=== PATIENT | male | born 1940 | race Caucasian/White ===

== ENCOUNTER → 2017-02-16 | Outpatient (CLI) | payer MEDICARE ==
[2017-02-16 08:40] LABS: HEMATOCRIT 41.9 % (42.0-52.0); HEMOGLOBIN 13.5 g/dl (14.0-18.0); MEAN CELL VOLUME 83.8 fl (80.0-94.0); MEAN CORPUSCULAR HGB CONC 32.2 g/dl (33.0-37.0); MEAN PLATELET VOLUME 10.5 fl (9.6-12.3); PLATELET COUNT AUTOMATED 173 10*3/uL (130-400); RED CELL DISTRI WIDTH 13.4 % (0-14.5); WHITE BLOOD COUNT 8.2 10*3/uL (4.8-10.8)
[2017-02-16 09:19] LABS: BASOPHIL # 0.1 10*3/uL (0-0.1); BASOPHILS 1 % (0-1); EOSINOPHIL # 0.4 10*3/uL (0-0.4); EOSINOPHILS 5 % (1-4); MONOCYTE # 0.5 10*3/uL (0.1-1.0); NEUTROPHIL # 6.2 10*3/uL (2.3-7.9); NEUTROPHILS 76 % (47-73); TOTAL CELLS COUNTED 100 #CELLS
[2017-02-16 09:20] LABS: PLATELET SUFFICIENCY NORMAL (NORMAL)
[2017-02-16 09:47] LABS: FREE T4 1.27 ng/dl (0.76-1.46)
[2017-02-17 08:15] LABS: FREE T3 010389 3.1 pg/mL (2.0-4.4)
[2017-02-17 15:09] LABS: THYROTROPIN RECEPTOR AB 6.95 IU/L (0.00-1.75)
== END | disposition home or self-care (01) ==
LOC: LAB 08:12
PROVIDERS: Family Medicine
DX: E05.90 Thyrotoxicosis, unspecified without thyrotoxic crisis or storm (principal); D64.9 Anemia, unspecified; Z86.2 Personal history of diseases of the blood and blood-forming organs and certain disorders involving the immune mechanism

== ENCOUNTER → 2017-03-06 | Outpatient (CLI) | payer MEDICARE | END | disposition home or self-care (01) | LOC: US 13:10 | DX: E05.90 Thyrotoxicosis, unspecified without thyrotoxic crisis or storm (principal) ==

== ENCOUNTER → 2017-07-07 | Outpatient (CLI) | payer MEDICARE ==
[2017-07-07 09:20] LABS: FREE T4 0.87 ng/dl (0.76-1.46)
[2017-07-07 09:25] LABS: THYROID STIM HORMONE (HS) 3.47 uIU/ml (0.358-4.75)
[2017-07-09 14:07] LABS: THYROTROPIN RECEPTOR AB 1.74 IU/L (0.00-1.75)
[2017-07-09 17:12] LABS: THYROGLOBULIN ANTIBODY <1.0 IU/mL (0.0-0.9); THYROGLOBULINN AB IMA 8.7 ng/mL (1.4-29.2)
== END | disposition home or self-care (01) ==
LOC: LAB 08:10
PROVIDERS: Internal Medicine
DX: E03.9 Hypothyroidism, unspecified (principal)

== ENCOUNTER 2017-10-11 09:10 | Emergency (ER) | payer MEDICARE ==
[~2017-10-11] VITALS: Ht 190.5 cm; Wt 98.9 kg
[2017-10-11 10:02] LABS: BILIRUBIN NEGATIVE (NEGATIVE); BLOOD NEGATIVE (NEGATIVE); CLARITY CLEAR (CLEAR); COLOR YELLOW (YELLOW); GLUCOSE NEGATIVE (NEGATIVE); KETONE TRACE (NEGATIVE); LEUKO ESTERASE NEGATIVE (NEGATIVE); NITRITE NEGATIVE (NEGATIVE); SPECIFIC GRAVITY >= 1.030 (1.005-1.030); UROBILINOGEN 0.2 E.U./dl (0.2-1.0)
[2017-10-11 10:14] LABS: BACTERIA TRACE; CALCIUM OXALATE CRYSTALS TRACE; RBC 0-2 rbc/hpf (0-2); WBC 0-2 wbc/hpf (0-5)
== END 2017-10-11 12:30 | disposition home or self-care (01) ==
LOC: ED 09:10
PROVIDERS: Nurse Practitioner Family
DX: N50.812 Left testicular pain (principal); N50.811 Right testicular pain; R03.0 Elevated blood-pressure reading, without diagnosis of hypertension

== ENCOUNTER 2018-12-28 09:34 | Emergency (ER) | payer MEDICARE ==
[~2018-12-28] VITALS: Ht 190.5 cm; Wt 99.8 kg
[2018-12-28 10:00] LABS: BILIRUBIN NEGATIVE (NEGATIVE); BLOOD NEGATIVE (NEGATIVE); CLARITY CLEAR (CLEAR); COLOR YELLOW (YELLOW); GLUCOSE 2+ (NEGATIVE); KETONE NEGATIVE (NEGATIVE); LEUKO ESTERASE NEGATIVE (NEGATIVE); NITRITE NEGATIVE (NEGATIVE); PH 5.5 (5.0-9.0); SPECIFIC GRAVITY 1.025 (1.005-1.030); UROBILINOGEN 0.2 E.U./dl (0.2-1.0)
[2018-12-28] MEDS ORDERED: ALA-CORT28.4 GM T (10:14)
== END 2018-12-28 10:55 | disposition home or self-care (01) ==
LOC: ED 09:34
PROVIDERS: Emergency Medicine
DX: L30.9 Dermatitis, unspecified (principal); N48.89 Other specified disorders of penis; L53.9 Erythematous condition, unspecified; E11.9 Type 2 diabetes mellitus without complications

== ENCOUNTER 2020-06-04 04:46 | Emergency (ER) | payer MEDICARE ==
[~2020-06-04] VITALS: Ht 190.5 cm; Wt 90.7 kg
[~2020-06-04 04:46] MED LIST: ALA-CORT28.4 GM T; AMLODIPINE BESYL5 MG PO; ASPIRIN ADULT L81 M2 PO; ELIQUIS5 M1 PO; GLIPIZIDE10 M2 PO; HYDROXYZINE HCL25 MG PO; Hydralazine Hyd25 MG PO; JANUMET 50-1,01 EACH PO; JARDIANCE25 MG PO; LOSARTAN POTAS100 M1 PO; Lopressor25 MG PO; ROSUVASTATIN CA20 MG PO; TRULICITY0.75 MG/0. SC; VITAMIN C1000 M5 PO; VITAMIN D31000 UNI1 PO
[2020-06-04 06:19] LABS: BILIRUBIN NEGATIVE (NEGATIVE); CLARITY CLEAR (CLEAR); COLOR YELLOW (YELLOW); GLUCOSE 1+ (NEGATIVE); KETONE NEGATIVE (NEGATIVE); SPECIFIC GRAVITY 1.015 (1.005-1.030)
[2020-06-04 06:20] LABS: BLOOD TRACE-INTACT (NEGATIVE); LEUKO ESTERASE NEGATIVE (NEGATIVE); NITRITE NEGATIVE (NEGATIVE); PH 6.5 (5.0-9.0); UROBILINOGEN 0.2 E.U./dl (0.2-1.0); WBC 0-2 wbc/hpf (0-5)
== END 2020-06-04 06:59 | disposition home or self-care (01) ==
LOC: ED 04:46
PROVIDERS: Emergency Medicine
DX: R33.9 Retention of urine, unspecified (principal); E11.9 Type 2 diabetes mellitus without complications; I25.10 Atherosclerotic heart disease of native coronary artery without angina pectoris; I10 Essential (primary) hypertension; Z79.899 Other long term (current) drug therapy; Z79.82 Long term (current) use of aspirin

== ENCOUNTER 2020-11-29 09:24 | Emergency (ER) | payer MEDICARE ==
[~2020-11-29] VITALS: Wt 93.0 kg
[2020-11-29 09:58] LABS: BASO # 0.1 10*3/uL (0.0-0.1); EOS # 0.1 10*3/uL (0.0-0.4); EOS % 1.6 % (1.0-4.0); HEMATOCRIT 46.3 % (42.0-52.0); LYMPH # 0.8 10*3/uL (1.3-4.4); LYMPH % 11.2 % (27.0-41.0); MEAN CORPUSCULAR HGB CONC 32.2 g/dl (33.0-37.0); MEAN PLATELET VOLUME 10.2 fl (9.6-12.3); MONO # 0.4 10*3/uL (0.1-1.0); MONO % 6.2 % (3.0-9.0); NEUT # 5.4 10*3/uL (2.3-7.9); NEUT % 79.6 % (47.0-73.0); PLATELET COUNT AUTOMATED 135 10*3/uL (130-400); RED BLOOD COUNT 5.32 10*6/uL (4.50-5.90); WHITE BLOOD COUNT 6.8 10*3/uL (4.8-10.8)
[2020-11-29 10:10] LABS: ALBUMIN 3.4 gm/dl (3.1-4.5); ALKALINE PHOSPHATASE 96 U/L (45-117); BUN 25 mg/dl (7-24); CHLORIDE 107 mmol/L (98-107); CREATININE 1.28 mg/dL (0.70-1.30); POTASSIUM 4.2 mmol/L (3.5-5.1); SGOT/AST 18 IU/L (3-35); SGPT/ALT 28 U/L (12-78); SODIUM 142 mmol/L (136-145); TOTAL PROTEIN 6.1 gm/dL (6.4-8.2)
[2020-11-29] MEDS ORDERED: KEFLEX500 M1 PO (10:19)
== END 2020-11-29 11:16 | disposition home or self-care (01) ==
LOC: ED 09:24
PROVIDERS: Nurse Practitioner
DX: L03.031 Cellulitis of right toe (principal); E11.9 Type 2 diabetes mellitus without complications; I25.10 Atherosclerotic heart disease of native coronary artery without angina pectoris; I10 Essential (primary) hypertension; Z79.899 Other long term (current) drug therapy; Z79.82 Long term (current) use of aspirin; Z90.49 Acquired absence of other specified parts of digestive tract; Z98.61 Coronary angioplasty status

== ENCOUNTER → 2020-11-30 | Outpatient (CLI) | payer MEDICARE ==
[~2020-11-30] MED LIST changes: +KEFLEX500 M1 PO
== END | disposition home or self-care (01) ==
LOC: WOUNDCARE 12:19
PROVIDERS: ATTEND Nurse Practitioner
DX: E11.621 Type 2 diabetes mellitus with foot ulcer (principal); L97.511 Non-pressure chronic ulcer of other part of right foot limited to breakdown of skin; L03.115 Cellulitis of right lower limb; M79.671 Pain in right foot; I10 Essential (primary) hypertension; Z79.82 Long term (current) use of aspirin; Z79.84 Long term (current) use of oral hypoglycemic drugs; Z90.49 Acquired absence of other specified parts of digestive tract

== ENCOUNTER → 2020-12-06 | Outpatient (CLI) | payer MEDICARE | END | disposition home or self-care (01) | LOC: WOUNDCARE 13:41 | PROVIDERS: ATTEND Nurse Practitioner | DX: E11.621 Type 2 diabetes mellitus with foot ulcer (principal); L97.511 Non-pressure chronic ulcer of other part of right foot limited to breakdown of skin; L03.115 Cellulitis of right lower limb; M79.671 Pain in right foot; I10 Essential (primary) hypertension; Z79.82 Long term (current) use of aspirin; Z79.84 Long term (current) use of oral hypoglycemic drugs; Z90.49 Acquired absence of other specified parts of digestive tract ==

== ENCOUNTER → 2020-12-09 | Outpatient (CLI) | payer MEDICARE | END | disposition home or self-care (01) | LOC: US 01:25 | PROVIDERS: ATTEND Nurse Practitioner | DX: I73.9 Peripheral vascular disease, unspecified (principal) ==

== ENCOUNTER → 2020-12-13 | Outpatient (CLI) | payer MEDICARE | END | disposition home or self-care (01) | LOC: WOUNDCARE 00:36 | PROVIDERS: ATTEND Nurse Practitioner | DX: E11.621 Type 2 diabetes mellitus with foot ulcer (principal); L97.512 Non-pressure chronic ulcer of other part of right foot with fat layer exposed; I10 Essential (primary) hypertension; L03.115 Cellulitis of right lower limb; M79.671 Pain in right foot; Z90.49 Acquired absence of other specified parts of digestive tract ==

== ENCOUNTER → 2020-12-20 | Outpatient (CLI) | payer MEDICARE | END | disposition home or self-care (01) | LOC: WOUNDCARE 00:40 | PROVIDERS: ATTEND Nurse Practitioner | DX: E11.621 Type 2 diabetes mellitus with foot ulcer (principal); L97.518 Non-pressure chronic ulcer of other part of right foot with other specified severity; I10 Essential (primary) hypertension; L03.115 Cellulitis of right lower limb; M79.671 Pain in right foot; Z90.49 Acquired absence of other specified parts of digestive tract ==

== ENCOUNTER 2020-12-25 16:01 | Emergency (ER) | payer MEDICARE ==
[~2020-12-25] VITALS: Wt 93.0 kg
== END 2020-12-25 17:50 | disposition home or self-care (01) ==
LOC: ED 16:01
DX: S90.31XA Contusion of right foot, initial encounter (principal); S90.821A Blister (nonthermal), right foot, initial encounter; L97.519 Non-pressure chronic ulcer of other part of right foot with unspecified severity; I48.91 Unspecified atrial fibrillation; E11.9 Type 2 diabetes mellitus without complications; I25.10 Atherosclerotic heart disease of native coronary artery without angina pectoris; I10 Essential (primary) hypertension; Z79.2 Long term (current) use of antibiotics; Z79.899 Other long term (current) drug therapy; Z79.82 Long term (current) use of aspirin; Z90.49 Acquired absence of other specified parts of digestive tract; Z95.5 Presence of coronary angioplasty implant and graft; W01.198A Fall on same level from slipping, tripping and stumbling with subsequent striking against other object, initial encounter; Y93.89 Activity, other specified; Y92.098 Other place in other non-institutional residence as the place of occurrence of the external cause; Y99.8 Other external cause status

== ENCOUNTER → 2020-12-28 | Outpatient (CLI) | payer MEDICARE | LOC: WOUNDCARE 01:32 | PROVIDERS: ATTEND Nurse Practitioner | DX: S90.821A Blister (nonthermal), right foot, initial encounter (principal); E11.621 Type 2 diabetes mellitus with foot ulcer; L97.518 Non-pressure chronic ulcer of other part of right foot with other specified severity; I10 Essential (primary) hypertension; M79.671 Pain in right foot; W19.XXXA Unspecified fall, initial encounter; Y93.89 Activity, other specified; Y92.89 Other specified places as the place of occurrence of the external cause; Y99.8 Other external cause status ==

== ENCOUNTER → 2021-01-04 | Outpatient (CLI) | payer MEDICARE | LOC: WOUNDCARE 02:02 | PROVIDERS: ATTEND Nurse Practitioner | DX: S90.821D Blister (nonthermal), right foot, subsequent encounter (principal); E11.621 Type 2 diabetes mellitus with foot ulcer; L97.518 Non-pressure chronic ulcer of other part of right foot with other specified severity; I10 Essential (primary) hypertension; M79.671 Pain in right foot; W19.XXXD Unspecified fall, subsequent encounter ==

== ENCOUNTER → 2021-01-11 | Outpatient (CLI) | payer MEDICARE | LOC: WOUNDCARE 01:36 | PROVIDERS: ATTEND Nurse Practitioner | DX: S90.821D Blister (nonthermal), right foot, subsequent encounter (principal); E11.621 Type 2 diabetes mellitus with foot ulcer; L97.518 Non-pressure chronic ulcer of other part of right foot with other specified severity; I10 Essential (primary) hypertension; M79.671 Pain in right foot; W19.XXXD Unspecified fall, subsequent encounter ==

== ENCOUNTER → 2021-01-18 | Outpatient (CLI) | payer MEDICARE | LOC: WOUNDCARE 00:37 | PROVIDERS: ATTEND Nurse Practitioner | DX: S90.821D Blister (nonthermal), right foot, subsequent encounter (principal); E11.621 Type 2 diabetes mellitus with foot ulcer; L97.518 Non-pressure chronic ulcer of other part of right foot with other specified severity; I10 Essential (primary) hypertension; M79.671 Pain in right foot; W19.XXXD Unspecified fall, subsequent encounter ==

== ENCOUNTER → 2021-01-25 | Outpatient (CLI) | payer MEDICARE | LOC: WOUNDCARE 01:53 | PROVIDERS: ATTEND Surgery | DX: S90.821D Blister (nonthermal), right foot, subsequent encounter (principal); E11.621 Type 2 diabetes mellitus with foot ulcer; L97.511 Non-pressure chronic ulcer of other part of right foot limited to breakdown of skin; I10 Essential (primary) hypertension; M79.671 Pain in right foot; W19.XXXD Unspecified fall, subsequent encounter ==

== ENCOUNTER → 2021-02-01 | Outpatient (CLI) | payer MEDICARE | LOC: WOUNDCARE 01-31 10:19 | PROVIDERS: ATTEND Nurse Practitioner | DX: S90.821D Blister (nonthermal), right foot, subsequent encounter (principal); E11.621 Type 2 diabetes mellitus with foot ulcer; L97.512 Non-pressure chronic ulcer of other part of right foot with fat layer exposed; I10 Essential (primary) hypertension; M79.671 Pain in right foot; W19.XXXD Unspecified fall, subsequent encounter ==

== ENCOUNTER → 2021-02-08 | Outpatient (CLI) | payer MEDICARE | LOC: WOUNDCARE 05:47 | PROVIDERS: ATTEND Nurse Practitioner | DX: E11.621 Type 2 diabetes mellitus with foot ulcer (principal); L97.512 Non-pressure chronic ulcer of other part of right foot with fat layer exposed; S91.301A Unspecified open wound, right foot, initial encounter; S80.821D Blister (nonthermal), right lower leg, subsequent encounter; I10 Essential (primary) hypertension; M79.671 Pain in right foot; X58.XXXD Exposure to other specified factors, subsequent encounter; X58.XXXA Exposure to other specified factors, initial encounter; Y93.89 Activity, other specified; Y92.89 Other specified places as the place of occurrence of the external cause; Y99.8 Other external cause status ==

== ENCOUNTER → 2021-02-16 | Outpatient (CLI) | payer MEDICARE | END | disposition home or self-care (01) | LOC: WOUNDCARE 01:49 | PROVIDERS: ATTEND Nurse Practitioner | DX: E11.621 Type 2 diabetes mellitus with foot ulcer (principal); L97.512 Non-pressure chronic ulcer of other part of right foot with fat layer exposed; S91.301D Unspecified open wound, right foot, subsequent encounter; S80.821D Blister (nonthermal), right lower leg, subsequent encounter; I10 Essential (primary) hypertension; M79.671 Pain in right foot; X58.XXXD Exposure to other specified factors, subsequent encounter ==

== ENCOUNTER → 2021-02-23 | Outpatient (CLI) | payer MEDICARE | LOC: WOUNDCARE 00:43 | PROVIDERS: ATTEND Nurse Practitioner | DX: E11.621 Type 2 diabetes mellitus with foot ulcer (principal); L97.512 Non-pressure chronic ulcer of other part of right foot with fat layer exposed; S80.821D Blister (nonthermal), right lower leg, subsequent encounter; M79.671 Pain in right foot; I10 Essential (primary) hypertension; X58.XXXD Exposure to other specified factors, subsequent encounter ==

== ENCOUNTER → 2021-03-02 | Outpatient (CLI) | payer MEDICARE | LOC: WOUNDCARE 01:16 | PROVIDERS: ATTEND Nurse Practitioner | DX: E11.621 Type 2 diabetes mellitus with foot ulcer (principal); L97.512 Non-pressure chronic ulcer of other part of right foot with fat layer exposed; S80.821D Blister (nonthermal), right lower leg, subsequent encounter; M79.671 Pain in right foot; I10 Essential (primary) hypertension; X58.XXXD Exposure to other specified factors, subsequent encounter ==

== ENCOUNTER → 2021-03-09 | Outpatient (CLI) | payer MEDICARE | LOC: WOUNDCARE 00:46 | PROVIDERS: ATTEND Nurse Practitioner | DX: E11.621 Type 2 diabetes mellitus with foot ulcer (principal); L97.512 Non-pressure chronic ulcer of other part of right foot with fat layer exposed; S80.821D Blister (nonthermal), right lower leg, subsequent encounter; M79.671 Pain in right foot; I10 Essential (primary) hypertension; X58.XXXD Exposure to other specified factors, subsequent encounter ==

== ENCOUNTER → 2021-03-16 | Outpatient (CLI) | payer MEDICARE | LOC: WOUNDCARE 00:56 | PROVIDERS: ATTEND Nurse Practitioner | DX: E11.621 Type 2 diabetes mellitus with foot ulcer (principal); L97.518 Non-pressure chronic ulcer of other part of right foot with other specified severity; S80.821D Blister (nonthermal), right lower leg, subsequent encounter; M79.671 Pain in right foot; I10 Essential (primary) hypertension; X58.XXXD Exposure to other specified factors, subsequent encounter ==